=== PATIENT | female | born 1970 | race Caucasian/White ===

== ENCOUNTER → 2017-09-08 07:16 | Outpatient (CLI) | payer MEDICAID ==
[2014-12-27 07:08] VITALS: BMI 26.3
[~2017-09-08 07:16] MED LIST: ADDERALL 20 MG20 M1 PO; AMBIEN10 MG PO; ASPIRIN EC81 M1 PO; FIBERCON625 MG; HYDROCODONE-APA1 TAB PO; KEFLEX500 MG PO; MIRALAX17 GM PO; PERCOCET 10/3251 TA1 PO; PRAVACHOL20 MG PO; PRENATAL COMPLE1 TAB PO; PREVACID15 MG PO; XANAX0.5 MG PO; ZOLOFT100 MG PO
--- NOTE | 2017-09-21 12:14 | ST ---
PATIENT:BLAINE GELLER MEDICAL RECORD: [id number] SEX: F LOCATION:[facility] ORDER #: ADMISSION DATE: 09/08/17 AGE OF PATIENT: 47 REFERRING PHYSICIAN: INTERPRETING PHYSICIAN: RANJIT GARCIA MD DATE OF SERVICE: 09/08/2017 PROCEDURE: Nuclear stress test. INDICATION: Chest pain of unknown etiology. She was exercised on standard Josemanuel standard Lexiscan protocol with 32.5 mCi of sestamibi injected at peak stress, 12.1 mCi were used previously for rest images. FINDINGS: Gated SPECT reveals preserved ejection fraction greater than 60% with good wall motion and thickening and brightening throughout all segments. SPECT imaging Cardiolite was used as myocardial perfusion agent. There is homogeneous uptake throughout all segments with no evidence of inducible ischemia or previous infarction. OVERALL IMPRESSION: 1. This is a normal nuclear stress test with no evidence of inducible ischemia or previous infarction. 2. Gated SPECT reveals preserved ejection fraction greater than 60%. This patient with ongoing symptomatology, the current scan does not suggest the presence with significant coronary artery disease. We will proceed with noncardiac chest pain etiology workup. 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
== END | disposition home or self-care (01) ==
LOC: D.NM 07:16
DX: R07.9 Chest pain, unspecified (principal)

== ENCOUNTER → 2018-05-03 16:11 | Outpatient (CLI) | payer MEDICAID ==
[2014-12-27 07:08] VITALS: BMI 26.3
== END | disposition home or self-care (01) ==
LOC: D.MAMMO 13:30
DX: Z12.31 Encounter for screening mammogram for malignant neoplasm of breast (principal)